=== PATIENT | female | born 1945 | race Caucasian/White ===

== ENCOUNTER 2022-03-01 06:28 | Day surgery (SDC) | payer OTHER ==
[~2022-03-01] VITALS: Ht 154.9 cm; Wt 80.0 kg
[~2022-03-01 06:28] MED LIST: SODIUM CHLORIDE 0.9% 1,000 ML IV ONE
[2022-03-01] MEDS ORDERED: SODIUM CHLORIDE 0.9% 1,000 ML ONE (06:32)
[2022-03-01 06:57] LABS: COVID AG,FIA SOURCE NASAL SWAB
[2022-03-01] MEDS ORDERED: CHOL200074 PO (07:46)
[2022-03-01] MEDS ORDERED: ARIP2TAB27 PO (07:46)
[2022-03-01] MEDS ORDERED: LEVO25TA9 PO (07:46)
[2022-03-01] MEDS ORDERED: LOSA-381 PO (07:46)
[2022-03-01] MEDS ORDERED: ATOR20TA65 PO (07:46)
[2022-03-01] MEDS ORDERED: SERT-440 PO (07:46)
[2022-03-01] MEDS ORDERED: MIDAZOLAM HCL 5 MG/ML VIAL ONE (08:19)
[2022-03-01] MEDS ORDERED: FentaNYL CITRATE PF 100 MCG/2 ML VIAL ONE (08:19)
[2022-03-01] MEDS ORDERED: MethylPREDNISolone SOD SUCC 125 MG/2 ML VIAL IVP ONE (09:30)
[2022-03-01] MEDS ORDERED: MethylPREDNISolone SOD SUCC 125 MG/2 ML VIAL ONE (09:42)
[2022-03-01] MEDS ORDERED: OXYGEN THERAPY IH SCH (20:00)
== END 2022-03-01 11:10 | disposition home or self-care (01) ==
LOC: SURGERY 06:28
PROVIDERS: ATTEND Internal Medicine Critical Care Medicine
DX: J38.4 Edema of larynx (principal); B37.0 Candidal stomatitis; I10 Essential (primary) hypertension; Z20.822 Contact with and (suspected) exposure to COVID-19; Z98.890 Other specified postprocedural states; Z79.899 Other long term (current) drug therapy
CPT/HCPCS: 31623; 88112; 87101; 87220; 87070; 88305; 31624; 94640; 71045; 87015; 87426; 87206; J3010; J2930; J2250; J7030; C9803